=== PATIENT | male | born 1955 | race Caucasian/White ===

== ENCOUNTER 2017-01-31 11:12 | Emergency (ER) | payer OTHER ==
[2017-01-31 11:20] VITALS: TEMP 98.2
--- NOTE | 2017-01-31 11:50 | UCPHY ---
H & P Patient Type: Established Chief Complaint Nursing Narrative: FEELS IF HE HAS THE FLU, SINUS INFECTION, DRY HEAVES, DIZZY LIGHTHEADED, CHILLS SINCE THURSDAY HPI/ROS: CHIEF COMPLAINT: Dizzy HISTORY OF PRESENT ILLNESS: This patient is a 62 year old man presenting with acute dizziness. He woke up four days ago on Thursday morning with acute spinning dizziness. It was associated with subjective fever, chills, myalgias, cough, post-nasal drip, and headache. He is taking Sudafed and ibuprofen for symptom relief. He saw his primary care provider on Thursday, who diagnosed him with viral syndrome. Nasal swab was negative for influenza. This morning, he woke up with more dizziness. It is also associated with nausea, dry heaving, photophobia, and diarrhea. He has difficulty keeping his balance when walking. He continues to feel chilled. Out of all his symptoms, he is most bothered by the dizziness. He denies recent falls or head trauma. He denies ear ache or change in hearing. When the patient has had sinusitis in the past, he also has had associated spinning dizziness. REVIEW OF SYSTEMS: A ten point review of systems was performed and is negative with the exception of the items mentioned in the HPI. Source: Patient Exam Limitations: No limitations - Personal History Current Tetanus Diphtheria and Acellular Pertussis (TDAP): Unsure - Medical/Surgical History Hx Asthma: No Hx Chronic Respiratory Disease: No Hx Diabetes: No Hx Cardiac Disease: No Hx Renal Disease: No Hx Cirrhosis: No Hx Alcoholism: No Hx HIV/AIDS: No Hx Splenectomy or Spleen Trauma: No Other PMH: BACK SURGERY LUMBAR 2004, SHOULDER SURGERY,. 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 He lives with his . - Physical Exam Exam: General Appearance: Alert. Vital signs reviewed. Eyes: Pupils equal and round, no conjunctival injection, no discharge. Anicteric. EOMI, no nystagmus. ENT, Mouth: TMs clear bilaterally. Mucous membranes are moist, no oropharyngeal erythema or edema. Neck: No lymphadenopathy, supple. Respiratory: Lungs are clear to auscultation; no wheezes, rales, or rhonchi. Cardiovascular: Regular rate and rhythm; no murmur, rub, or gallop. Gastrointestinal: Abdomen is soft, diffuse abdominal tenderness, no masses or organomegaly, bowel sounds normal. Skin: Warm and dry, no rashes on exposed skin, normal color. Back: Nontender to palpation over the thoracolumbar spine. No CVAT. Extremities: No lower extremity edema, no calf tenderness or swelling. Neurological: Alert and oriented. Moving all four extremities easily and equally. Cranial nerves II through XII are examined and are intact (visual acuity not tested). Strength is 5 over 5 bilaterally with testing of all major motor groups. Sensation is intact to light touch over all 4 extremities. Psychiatric: Normal affect. Constitutional: Initial Vital Signs Temperature (C) 36.8 C 01/31/17 11:14 Heart Rate 76 01/31/17 11:14 Respiratory Rate 16 01/31/17 11:14 Blood Pressure 129/73 H 01/31/17 11:14 O2 Sat (%) 98 01/31/17 11:14 O2 Delivery Mode Room Air Allergies/Adverse Reactions: steroid Allergy (Severe, Uncoded 01/31/17 11:21) Other-Enter Comments Home Medications: Medication Instructions Recorded Esomeprazole Mag Trihydrate 40 mg PO DAILY 03/03/14 [Nexium] Ondansetron Odt [Zofran Odt 4 mg 4 mg PO Q4 PRN #10 tab 01/31/17 (RX)] oxyCODONE/APAP 5/325 [Percocet 1 - 2 tab PO Q4H PRN #14 tab 01/31/17 5/325 (RX)] Medical Decision Making - Diagnostics Imaging: Study: CT of the Head w/o IV contrast Indication: Dizziness, headache Results: The results of the study are: No acute findings. The study was read by the radiologist, Dr. Morales. I viewed the images myself on the PACS system. ED Course/Re-evaluation: This patient presents with four days of spinning dizziness. It is associated with sinus and upper respiratory symptoms, myalgias, abdominal pain, and nausea. An IV has been established. He has received 4mg IV Zofran and 1mg IV Ativan for nausea and dizziness relief. CBC and BMP ordered. 1320: Re-evaluation. He is feeling slightly improved. Nausea has resolved. He continues to have diffuse abdominal tenderness. Denies hematemesis or bloody diarrhea. He also continues to complain of dizziness and headache. Finger to nose on the left is normal. Finger to nose on the right is abnormal with past- pointing. I have ordered a head CT. Head CT is negative for acute findings. He has a left maxillary sinus mucous retention cyst. After returning from the head scan the patient reports continued dizziness. He states that the room is not spinning. He complains of a feeling of fullness in his head and now reports headache. With further questioning it seems that some of what he has been describing has actually been headache. He notes headache when he awoke 4 days ago with dizziness. He was able to stand at the bedside. There is no truncal ataxia. He is able to ambulate. Neurologic exam remains normal with no weakness, numbness, or cranial nerve findings. He is not confused. He has not had fever. He does not have meningeal signs on repeat examination. It is his impression that he might have sinus disease, which he states he has had in the past. I reviewed the CT scan. There is no sinus inflammation. Mucous retention cyst should not be causing pain or other problems. We spoke further about his headache, which now seems to be his major complaint. I do not think that he is suffering from vertigo. He does report some photophobia; it would be unusual for him to developed migraines at this stage of life. He has not had any pain medication at all today. He feels that his abdominal discomfort is secondary to the retching that he was doing earlier. He continues with mild diffuse abdominal pain on palpation. He has not had any further vomiting. We have agreed that we will treat him with a 2nd L of IV fluid, 100 mcg IV fentanyl, and Toradol 15 mg IV. Although subarachnoid seen hemorrhage seems unlikely with this constellation of symptoms it is in the differential of headache, therefor I discussed lumbar puncture with him. This would assess for subarachnoid hemorrhage and also for the possibility of meningitis (viral in this setting). I do not think that he has either of these problems but do not have a clear-cut diagnosis. He understands that subarachnoid hemorrhage is a potentially life-threatening problem. The procedure of lumbar puncture was briefly explained to him and his . He is able to make his own medical decisions. He does not wish to proceed with lumbar puncture at this time. He felt better after rest, IVF, and pain medicine. He feels that he can return home and manage his symptoms. We reviewed the danger signs that should prompt him to return. I suspect a viral syndrome. Differential Diagnosis: Headache including but not limited to subarachnoid hemorrhage, migraine headache , cluster headache, tension headache and infectious causes such as viral syndrome, meningitis, pharyngitis and sinusitis. Dizziness including but not limited to peripheral and central causes of vertigo , orthostatic causes including dehydration, and blood loss. - Data Points Laboratory Results: Laboratory Results 01/31/17 12:37 01/31/17 12:37 Medications Given: Discontinued Medications Fentanyl (Sublimaze) 100 mcg IVP EDNOW ONE Stop: 01/31/17 15:45 Last Admin: 01/31/17 16:28 Dose: 100 mcg Sodium Chloride (Ns) 1,000 mls @ 0 mls/hr IV ONCE ONE PRN Reason: Wide Open Stop: 01/31/17 12:33 Last Admin: 01/31/17 12:42 Dose: 1,000 mls Sodium Chloride (Ns) 1,000 mls @ 0 mls/hr IV ONCE ONE PRN Reason: Wide Open Stop: 01/31/17 15:45 Last Admin: 01/31/17 15:45 Dose: 1,000 mls Ketorolac Tromethamine (Toradol) 15 mg IVP EDNOW ONE Stop: 01/31/17 15:45 Last Admin: 01/31/17 16:26 Dose: 15 mg Lorazepam (Ativan Injection) 1 mg IVP EDNOW ONE Stop: 01/31/17 12:26 Last Admin: 01/31/17 12:51 Dose: 1 mg Ondansetron HCl (Zofran) 4 mg IVP EDNOW ONE Stop: 01/31/17 12:26 Last Admin: 01/31/17 12:50 Dose: 4 mg Departure - Departure Disposition: Home, Routine, Self-Care Clinical Impression: Viral syndrome Condition: Good Instructions: Viral Syndrome (ED) Additional Instructions: Please follow up with your [facility] physician on Thursday. If you are worse in any way--worsening headache, fever, unable to eat or drink because of nausea and vomiting, severe abdominal pain, any new or concerning symptoms--you should be re-evaluated again. As we discussed, it is not entirely clear what is causing all of your symptoms. It does seem likely that this is a viral/flu-like illness. You should continue to get plenty of rest. Do your best to stay well hydrated. Uses the Zofran, one wafer under your tongue every 4 hours, if needed for nausea and vomiting. Use the Percocet if needed for pain. Each Percocet contains 325 mg of Tylenol. Please watch her overall Tylenol dose. You should not take more than 3000 mg of Tylenol in a 24 hour time period. Referrals: [facility] [Provider Group] - As per Instructions Prescriptions: Ondansetron Odt [Zofran Odt 4 mg (RX)] 4 mg PO Q4 PRN #10 tab PRN Reason: nausea oxyCODONE/APAP 5/325 [Percocet 5/325 (RX)] 1 - 2 tab PO Q4H PRN #14 tab PRN Reason: Pain, Severe - PQRS PQRS Measurement: Does not apply. Report Scribed for: Blaire Holt Report Scribed by: Serena Pardo Date of Report: 01/31/17 Time of Report: 12:25 Physician Review and Approval Statement: 01/31/17 16:05 Portions of this note were transcribed by the medical office administrator. I, Dr. Blaire Holt, personally performed the history, physical exam, and medical decision- making; and confirmed the accuracy of the information in the transcribed note.
[2017-01-31] MEDS ORDERED: LORazepam 2 MG/ML INJ IVP ONE (12:25)
[2017-01-31] MEDS ORDERED: ONDANSETRON 4 MG/2 ML VIAL IVP ONE (12:25)
[2017-01-31] MEDS ORDERED: NS 1,000 ML IV ONE ×2 (12:32→15:44)
[2017-01-31 12:50] LABS: % IMMATURE GRANULYOCYTES 0.3 % (0.0-1.1); ABSOLUTE IMMATURE GRANULOCYTES 0.02 10^3/uL (0.00-0.10); ADD DIFF? NO; ADD MORPH? NO; ADD SCAN? NO; ATYPICAL LYMPHOCYTE FLAG 10 (0-99); FRAGMENT RBC FLAG 0 (0-99); HEMATOCRIT 47.1 % (40.0-51.0); HEMOGLOBIN 16.2 g/dL (13.7-17.5); LEFT SHIFT FLG 0 (0-99); LIPEMIA HEMOLYSIS FLAG 90 (0-99); MEAN CELL HEMOGLOBIN 28.9 pg (27.9-34.1); MEAN CELL HEMOGLOBIN CONCENTR. 34.4 g/dL (32.4-36.7); MEAN PLATELET VOLUME 10.5 fL (8.7-11.7); PLATELET CLUMPS FLAG 0 (0-99); PLATELET COUNT 260 10^3/uL (150-400); RED BLOOD CELL COUNT 5.61 10^6/uL (4.40-6.38); RED CELL DISTRIBUTION WIDTH 13.9 % (11.5-15.2)
[2017-01-31 13:02] LABS: ANION GAP 16 mEq/L (8-16); CARBON DIOXIDE 21 mEq/l (22-31); CHLORIDE 104 mEq/L (97-110); CREATININE 0.8 mg/dL (0.7-1.3); GLOMERULAR FILTRATION RATE > 60; GLUCOSE 107 mg/dL (70-100); POTASSIUM 4.2 mEq/L (3.5-5.2); SODIUM 141 mEq/L (134-144)
[2017-01-31] MEDS ORDERED: KETOROLAC 30 MG/1 ML SDV IVP ONE (15:44)
[2017-01-31] MEDS ORDERED: fentaNYL 100 MCG/2 ML INJ IVP ONE (15:44)
[2017-01-31 18:00] VITALS: BP 118/80; PULSE 76; RESP 16; O2SAT 94
== END 2017-01-31 17:58 | disposition home or self-care (01) ==
LOC: CED 11:12
DX: B34.9 Viral infection, unspecified (principal)
CPT/HCPCS: 70450-PO; 80048-PO; 85025-PO; 96361-PO; 96374-PO; 96375-PO; G0463-PO; J1885; J2060; J2405; J3010

== ENCOUNTER 2017-08-20 09:25 | Emergency (ER) | payer OTHER ==
[2017-08-20 09:39] VITALS: RESP 18; TEMP 98
--- NOTE | 2017-08-20 09:45 | EDPHY ---
H & P Stated Complaint: c/o mid abd pain started yesterday Time Seen by Provider: 08/20/17 09:28 HPI/ROS: Chief Complaint: Abdominal pain HPI: 62-year-old male with past medical history of reflux, occasionally on Nexium started having abdominal pain yesterday. He states that this pain is not similar to his usual reflux pain. Is described as in the middle of his abdomen. Is also having pain on both sides has upper abdomen. Some nausea but no vomiting. Has had some loose stools. No blood or melena. He did take some Nexium yesterday with minimal relief. Pain got worse at 1 o'clock this morning. He is unable to find a position of comfort. There are no aggravating or alleviating factors. No urinary urgency or frequency. No hematuria. He does have a history of an umbilical hernia but is not notice any changes in this. No chest pain or shortness of breath. Does have a history of renal calculi as well and has had a stone removal in the past. He states that this does not feel like his usual kidney stone pain. ROS: 10 point Review of Systems is negative except as noted in the HPI. PMH: GERD, renal colic Past surgical history: Kidney stone removal, back surgery, bilateral shoulder Social History: No smoking, rare alcohol, no recreational drug use Family History: non-contributory Physical Exam: Gen: Awake, Alert, No Distress HEENT: Nose: no rhinorrhea Eyes: PERRLA, EOMI Mouth: Moist mucosa Neck: Supple, no JVD Chest: nontender, lungs clear to auscultation Heart: S1, S2 normal, no murmur Abd: Soft, mild epigastric tenderness, no lower abdominal tenderness, no guarding Back: no CVA tenderness, no midline tenderness Ext: no edema, non-tender Skin: no rash Neuro: CN II-XII intact, Sensation grossly intact, Strength 5/5 in bilateral upper and lower extremities - Personal History Current Tetanus Diphtheria and Acellular Pertussis (TDAP): Yes - Medical/Surgical History Hx Asthma: No Hx Chronic Respiratory Disease: No Hx Diabetes: No Hx Cardiac Disease: No Hx Renal Disease: No Hx Cirrhosis: No Hx Alcoholism: No Hx HIV/AIDS: No Hx Splenectomy or Spleen Trauma: No Other PMH: BACK SURGERY LUMBAR 2004, SHOULDER SURGERY,. Kidney stone, history of chronic recurrent otitis media, umbilical hernia - Social History Smoking Status: Never smoked Constitutional: Initial Vital Signs Temperature (C) 36.6 C 08/20/17 09:37 Heart Rate 76 08/20/17 09:37 Respiratory Rate 18 08/20/17 09:37 Blood Pressure 134/83 H 08/20/17 09:37 O2 Sat (%) 97 08/20/17 09:37 O2 Delivery Mode Room Air Allergies/Adverse Reactions: steroid Allergy (Severe, Uncoded 01/31/17 11:21) Other-Enter Comments Home Medications: Medication Instructions Recorded Nexium 08/20/17 Medical Decision Making ED Course/Re-evaluation: Patient's blood work is normal. Urinalysis is negative. Patient is improved after GI cocktail. Symptoms consistent with gastritis versus a gastroenteritis. He does have an umbilical hernia and has been referred to Dr. Mansfield in the past. I will give him referral but there is no evidence of incarceration at this time. His exam is soft and benign. Will discharge with follow-up with his primary care physician in general surgery, return for worsening. - Data Points Laboratory Results: Laboratory Results 08/20/17 10:00 08/20/17 10:00 08/20/17 08/20/17 08/20/17 11:05 10:00 10:00 WBC 4.49 10^3/uL 10^3/uL (3.80-9.50) RBC 5.86 10^6/uL 10^6/uL (4.40-6.38) Hgb 16.4 g/dL g/dL (13.7-17.5) Hct 48.7 % % (40.0-51.0) MCV 83.1 fL fL (81.5-99.8) MCH 28.0 pg pg (27.9-34.1) MCHC 33.7 g/dL g/dL (32.4-36.7) RDW 13.6 % % (11.5-15.2) Plt Count 258 10^3/uL 10^3/uL (150-400) MPV 10.3 fL fL (8.7-11.7) Neut % (Auto) 49.0 % % (39.3-74.2) Lymph % (Auto) 40.3 % % (15.0-45.0) [place] % (Auto) 7.6 % % (4.5-13.0) Eos % (Auto) 2.0 % % (0.6-7.6) Baso % (Auto) 0.9 % % (0.3-1.7) Nucleat RBC Rel Count 0.0 % % (0.0-0.2) Absolute Neuts (auto) 2.20 10^3/uL 10^3/uL (1.70-6.50) Absolute Lymphs (auto) 1.81 10^3/uL 10^3/uL (1.00-3.00) Absolute Monos (auto) 0.34 10^3/uL 10^3/uL (0.30-0.80) Absolute Eos (auto) 0.09 10^3/uL 10^3/uL (0.03-0.40) Absolute Basos (auto) 0.04 10^3/uL 10^3/uL (0.02-0.10) Absolute Nucleated RBC 0.00 10^3/uL 10^3/uL (0-0.01) Immature Gran % 0.2 % % (0.0-1.1) Immature Gran # 0.01 10^3/uL 10^3/uL (0.00-0.10) Sodium 140 mEq/L mEq/L (134-144) Potassium 4.6 mEq/L mEq/L (3.5-5.2) Chloride 105 mEq/L mEq/L (97-110) Carbon Dioxide 21 mEq/l L mEq/l (22-31) Anion Gap 14 mEq/L mEq/L (8-16) BUN 12 mg/dL mg/dL (7-23) Creatinine 0.8 mg/dL mg/dL (0.7-1.3) Estimated GFR > 60 Glucose 103 mg/dL H mg/dL (70-100) Calcium 9.2 mg/dL mg/dL (8.5-10.4) Total Bilirubin 0.9 mg/dL mg/dL (0.1-1.4) AST 18 IU/L IU/L (17-59) ALT 39 IU/L IU/L (21-72) Alkaline Phosphatase 84 IU/L IU/L (38-126) Total Protein 7.4 g/dL g/dL (6.3-8.2) Albumin 4.4 g/dL g/dL (3.5-5.0) Lipase 82 IU/L IU/L (23-300) Urine Color PALE YELLOW Urine Appearance CLEAR Urine pH 6.0 (5.0-7.5) Ur Specific Michael 1.020 (1.002-1.030) Urine Protein NEGATIVE (NEGATIVE) Urine Ketones NEGATIVE (NEGATIVE) Urine Blood NEGATIVE (NEGATIVE) Urine Nitrate NEGATIVE (NEGATIVE) Urine Bilirubin NEGATIVE (NEGATIVE) Urine Urobilinogen 0.2 EU EU (0.2-1.0) Ur Leukocyte Esterase NEGATIVE (NEGATIVE) Urine Glucose NEGATIVE (NEGATIVE) Medications Given: Discontinued Medications Al Hydroxide/Mg Hydroxide (Maalox Susp) 30 ml PO ONCE ONE Stop: 08/20/17 10:16 Last Admin: 08/20/17 10:29 Dose: 30 ml Hyoscyamine Sulfate (Levsin, Hyomax-Sl) 0.25 mg PO ONCE ONE Stop: 08/20/17 10:16 Last Admin: 08/20/17 10:29 Dose: 0.25 mg Lidocaine (Lidocaine 2% Viscous) 15 ml PO ONCE ONE Stop: 08/20/17 10:16 Last Admin: 08/20/17 10:29 Dose: 15 ml Ondansetron HCl (Zofran) 4 mg IVP EDNOW ONE Stop: 08/20/17 10:20 Last Admin: 08/20/17 10:29 Dose: 4 mg Departure - Departure Disposition: Home, Routine, Self-Care Clinical Impression: Abdominal pain Condition: Good Instructions: Abdominal Pain (ED), Gastritis (ED) Additional Instructions: Take your Nexium regularly for your reflux and gastritis symptoms. Follow up with primary care physician on Thursday for recheck. Return to the emergency department for increasing pain, nausea, vomiting, fevers , chills, dark black bowel movements, or any other concerns. Follow-up with General surgery as an outpatient for evaluation of your hernia. Referrals: NONE *PRIMARY CARE P,. [Primary Care Provider] - As per Instructions Jeffery Mansfield MD [Medical Doctor] - As per Instructions
[2017-08-20] MEDS ORDERED: ONDANSETRON 4 MG/2 ML VIAL ONE (10:04)
[2017-08-20 10:05] LABS: % IMMATURE GRANULYOCYTES 0.2 % (0.0-1.1); ABSOLUTE IMMATURE GRANULOCYTES 0.01 10^3/uL (0.00-0.10); ADD DIFF? NO; ADD MORPH? NO; ADD SCAN? NO; ATYPICAL LYMPHOCYTE FLAG 0 (0-99); FRAGMENT RBC FLAG 0 (0-99); HEMATOCRIT 48.7 % (40.0-51.0); HEMOGLOBIN 16.4 g/dL (13.7-17.5); LEFT SHIFT FLG 0 (0-99); LIPEMIA HEMOLYSIS FLAG 80 (0-99); MEAN CELL HEMOGLOBIN CONCENTR. 33.7 g/dL (32.4-36.7); MEAN CELL VOLUME 83.1 fL (81.5-99.8); MEAN PLATELET VOLUME 10.3 fL (8.7-11.7); PLATELET CLUMPS FLAG 10 (0-99); PLATELET COUNT 258 10^3/uL (150-400); RED BLOOD CELL COUNT 5.86 10^6/uL (4.40-6.38); RED CELL DISTRIBUTION WIDTH 13.6 % (11.5-15.2)
[2017-08-20] MEDS ORDERED: HYOSCYAMINE SULFATE 0.125 MG TAB PO ONE (10:15)
[2017-08-20] MEDS ORDERED: LIDOCAINE 2% VISCOUS 15 ML UDCUP PO ONE (10:15)
[2017-08-20] MEDS ORDERED: MAG HYDROX/AL HYDROX/SIMETH 30 ML UDCUP PO ONE (10:15)
[2017-08-20] MEDS ORDERED: ONDANSETRON 4 MG/2 ML VIAL IVP ONE (10:19)
[2017-08-20 10:24] LABS: ALANINE AMINOTRANSFERASE 39 IU/L (21-72); ALBUMIN 4.4 g/dL (3.5-5.0); ALKALINE PHOSPHATASE 84 IU/L (38-126); ANION GAP 14 mEq/L (8-16); ASPARTATE AMINOTRANSFERASE 18 IU/L (17-59); BILIRUBIN,TOTAL 0.9 mg/dL (0.1-1.4); CALCIUM 9.2 mg/dL (8.5-10.4); CARBON DIOXIDE 21 mEq/l (22-31); CHLORIDE 105 mEq/L (97-110); CREATININE 0.8 mg/dL (0.7-1.3); GLOMERULAR FILTRATION RATE > 60; GLUCOSE 103 mg/dL (70-100); POTASSIUM 4.6 mEq/L (3.5-5.2); SODIUM 140 mEq/L (134-144); TOTAL PROTEIN 7.4 g/dL (6.3-8.2)
[2017-08-20 11:11] LABS: COLOR PALE YELLOW; LEUKOCYTE ESTERASE,URINE NEGATIVE (NEGATIVE); NITRITE,URINE NEGATIVE (NEGATIVE)
[2017-08-20 11:39] VITALS: BP 137/66; PULSE 74; O2SAT 95
== END 2017-08-20 11:37 | disposition home or self-care (01) ==
LOC: CED 09:25
DX: R10.13 Epigastric pain (principal)
CPT/HCPCS: 80053-PO; 81003-PO; 83690-PO; 85025-PO; 96374; J2405